=== PATIENT | female | born 1975 | race Caucasian/White ===

== ENCOUNTER → 2017-01-20 | Outpatient (CLI) | payer OTHER ==
[~2017-01-20] MED LIST: DOXY100C PO; MULT-506 PO; NAPR1TAB9 PO; SERT25TA PO
--- NOTE | 2017-01-21 07:39 | MAMMOGRAPHY REPORT ---
BILATERAL DIGITAL SCREENING MAMMOGRAM TOMOSYNTHESIS WITH CAD: 01/20/2017 CLINICAL HISTORY: Routine screening. Patient has no complaints. TECHNIQUE: Breast tomosynthesis in addition to standard 2D mammography was performed. Current study was also evaluated with a Computer Aided Detection (CAD) system. COMPARISON: Comparison is made to exam dated: 01/16/2016 mammogram - [facility]. BREAST COMPOSITION: The tissue of both breasts is heterogeneously dense, which may obscure small ma sses. FINDINGS: The parenchymal pattern is unchanged. No developing mass, architectural distortion or clu ster of suspicious microcalcifications is seen in either breast. IMPRESSION: ACR BI-RADS CATEGORY 2: BENIGN There is no mammographic evidence of malignancy. A 1 year screening mammogram is recommended. The p atient will receive written notification of the results. Approximately 10% of breast cancers are not detected with mammography. A negative mammographic repor t should not delay biopsy if a clinically suggestive mass is present. Frieda Marcelo M.D. ay/:01/20/2017 17:36:22 Busboy: Angelia BARRIOS([place])([place]), [facility] letter sent: Normal 1/2 BI-RADS Code: ACR BI-RADS Category 2: Benign
== END | disposition home or self-care (01) ==
LOC: C.MAMM 07:15
PROVIDERS: ATTEND Family Medicine
DX: Z12.31 Encounter for screening mammogram for malignant neoplasm of breast (principal)

== ENCOUNTER 2017-06-02 12:12 | Emergency (ER) | payer OTHER ==
[~2017-06-02] VITALS: Ht 160 cm; Wt 54.1 kg
[~2017-06-02 12:12] MED LIST changes: -DOXY100C PO
[2017-06-02 12:14] VITALS: TEMP 36.9; Ht 160 cm; Wt 54.1 kg
[2017-06-02] MEDS ORDERED: CEFTRIAXONE SOD INJ 2,000 MG in DEXTROSE 5% 50ML 50 ML IV STA (12:38)
[2017-06-02] MEDS ORDERED: IBUPROFEN 600 MG TAB PO STA (12:38)
[2017-06-02] MEDS ORDERED: SODIUM CHLORIDE 0.9% 500ML 500 ML IV STA (12:38)
[2017-06-02] MEDS ORDERED: DOXY100C PO (13:03)
--- NOTE | 2017-06-02 13:46 | EMERGENCY ROOM VISIT NOTE ---
History Report prepared by Lilo: Star Gutierrez Under the Supervision of: Dr. Jean Pierre Park M.D. First contact with patient: 12:25 Chief Complaint: ILLNESS Stated Complaint: HIGH FEVER, STIFFNESS IN NECK,BACK, SPLOTCHES History of Present Illness The patient is a 42 year old female who presents to the Emergency Room with complaints of intermittent fevers beginning 6 days ago. The patient states that her fevers began 6 days ago and have been present in the morning and evening, but not during the day. She reports that she does not know why they started, and the fevers have led to headaches and lack of sleep. The patient notes that she thought her headaches were from the lack of sleep. She states that three days ago her neck began to stiffen. The patient reports that she went to her PCP and had urine and blood work performed. She notes that the only result that she has received was a negative Lyme test. The patient states that she has developed hot flashes and chills, even when outside in a sweater. She reports that it is difficult to swallow, but it is not painful. The patient notes that this morning she developed a stuffy nose and two splotch-like rashes. She states that her ankles and wrist joints have been in pain as well. The patient reports that she has been taking Tylenol, but it is not helping. The patient denies dysuria, vomiting, coughing, urinary frequency, and tick bites. She reports that the only medication she takes is Zoloft for anxiety. Source of History: patient Onset: 6 days ago Position: other (global) Quality: other (fever) Timing: intermittent Associated Symptoms: + chills, + headache, + rash, No cough, No vomiting, No urinary symptoms Note: Associated symptoms: neck stiffness, lack of sleep, hot flashes, difficulty swallowing, stuffy nose, and ankle and wrist joint pain Denies dysuria and tick bites Review of Systems See HPI for pertinent positives & negatives. A total of 10 systems reviewed and were otherwise negative. Past Medical & Surgical Medical Problems: (1) Concussion (2) Headache (3) IBS (irritable bowel syndrome) (4) Imbalance (5) Vertigo Family History Diabetes mellitus SISTER FH: cancer AUNT Social History Smoking Status: Never Smoker Alcohol Use: occasionally Occupation Status: employed Current/Historical Medications Scheduled Doxycycline Hyclate (Vibramycin), 100 MG PO BID Multivitamin (Multivitamin), 1 TAB PO DAILY Sertraline (Zoloft), 25 MG PO DAILY Scheduled PRN Naproxen (Aleve), 440 MG PO DIRECTED PRN for Pain Allergies Coded Allergies: Camphor (Unverified Allergy, Intermediate, LEGS SWELLING, 06/02/17) Diphenhydramine (Unverified Allergy, Intermediate, LEGS SWELLING, 06/02/17) Calamine (Unverified Allergy, Unknown, rash, 06/02/17) Physical Exam Vital Signs Date Time Temp Pulse Resp B/P (MAP) Pulse Ox O2 Delivery O2 Flow Rate FiO2 06/02/17 14:09 67 18 82/54 98 06/02/17 13:32 84 16 90/57 100 Room Air 06/02/17 12:14 36.9 89 18 90/58 98 Room Air Physical Exam GENERAL: Patient is in no acute distress. HEENT: No acute trauma, normocephalic atraumatic, mucous membranes moist, no nasal congestion, no scleral icterus. NECK: No stridor, no adenopathy, no meningismus, trachea is midline. Flexes chin to chest with no pain or difficulty LUNGS: Clear to auscultation bilaterally, no wheeze, no rhonchi, breath sounds equal. HEART: Without murmurs gallops or rubs, regular rate and rhythm. ABDOMEN: Soft, nontender, bowel sounds positive, no hernias, no peritonitis. EXTREMITIES: No cyanosis or edema, full range of motion of all the joints without pain or difficulty, no signs for acute trauma. NEUROLOGIC: Oriented x 3, no acute motor or sensory deficits, no focal weakness. SKIN: Erythematous slightly raised lesions across the lower chest, no cellulitis , range in size from 2 cm to 5 cm, they do palomo. Medical Decision & Procedures Laboratory Results Lab results from 06/02/17: Urine Culture returned negative Chemistry Profile was essentially negative Lyme Disease testing was negative CBC: WBC 8.70 HGB 12.9 Platelet Count 194 Medications Administered Medications (Trade) Dose Ordered Sig/Char Route Start Time Stop Time Status Last Admin Dose Admin Sodium Chloride 500 ml @ 999 mls/hr Q31M STAT IV 06/02/17 12:38 06/02/17 13:08 DC 06/02/17 12:59 999 MLS/HR Ceftriaxone Sodium 2000 mg/ Dextrose 70 ml @ 100 mls/hr ONE STAT IV 06/02/17 12:38 06/02/17 13:19 DC 06/02/17 12:58 100 MLS/HR Ibuprofen (Motrin Tab) 600 mg NOW STAT PO 06/02/17 12:38 06/02/17 12:41 DC 06/02/17 12:58 600 MG ED Course 1230: The patient was evaluated in room A04B. A complete history and physical exam was performed. 1238: Ordered Ibuprofen 600 mg PO, Ceftriaxone Sodium 2000 mg/Dextrose 70 ml @ 100 mls/hr IV, Sodium Chloride 500 ml @ 999 mls/hr IV 1336: Reevaluated the patient. Discussed results and discharge instructions: she verbalized understanding and agreement. The patient is ready for discharge. Medical Decision Differential diagnosis includes: Lyme disease, meningitis, viral illness, UTI, bacteremia, sepsis, endocarditis Medication Reconciliation: I attest that I have personally reviewed the patient' s current medication list. Blood Pressure Screening: Patient was found to have normal blood pressure on screening and does not require follow-up. The patient presents with flulike symptoms. She had lab work a few days ago which I was able to review. The white count was normal, there was no anemia. Chemistry profile was unremarkable. Urine culture did not grow any organisms. Lyme testing was negative. On exam, the patient is not toxic. She has no meningismus. She is pleasant and smiling. Her blood pressure is borderline low but she is thin and has a low blood pressure all of the time. She states that her numbers today are typical for her. I did order for some blood cultures as these had not been done as an outpatient. I do believe her presentation is very consistent with Lyme disease despite the negative Lyme test as an outpatient. She now has a rash which makes Lyme disease even more likely. Patient was given a dose of IV saline and IV ceftriaxone. She is being discharged on doxycycline for a month. She will follow with her doctors office and return here if she is not improving or worsening. Impression Primary Impression: Lyme disease Additional Impressions: Fever Rash Scribe Attestation The scribe's documentation has been prepared under my direction and personally reviewed by me in its entirety. I confirm that the note above accurately reflects all work, treatment, procedures, and medical decision making performed by me. Departure Information Dispostion Home / Self-Care Prescriptions Doxycycline Hyclate (VIBRAMYCIN) 100 Mg Cap 100 MG PO BID for 28 Days, #56 CAP Prov: Jean Pierre Park M.D. 06/02/17 Referrals Juju Trammell M.D. Forms HOME CARE DOCUMENTATION FORM, IMPORTANT VISIT INFORMATION, WORK / SCHOOL INSTRUCTIONS Patient Instructions [facility] Additional Instructions doxycycline 2x per day for 4 weeks stay well hydrated rest off work for 3 days motrin and or tylenon for fever and aches return if worsening as we discussed consider lyme disease testing in a few weeks follow with jimmy [facility] for a recheck we will call with any positive blood culture results Problem Qualifiers
[2017-06-02 14:09] VITALS: BP 82/54; PULSE 67; O2SAT 98
== END 2017-06-02 14:11 | disposition home or self-care (01) ==
LOC: C.EDB 12:13 → C.EDA 14:11
DX: A69.20 Lyme disease, unspecified (principal); F41.9 Anxiety disorder, unspecified; Z79.899 Other long term (current) drug therapy; K58.9 Irritable bowel syndrome, unspecified; Z83.3 Family history of diabetes mellitus; Z80.9 Family history of malignant neoplasm, unspecified

== ENCOUNTER → 2018-01-28 | Outpatient (CLI) | payer OTHER ==
--- NOTE | 2018-01-28 15:17 | MAMMOGRAPHY REPORT ---
BILATERAL DIGITAL SCREENING MAMMOGRAM TOMOSYNTHESIS WITH CAD: 01/28/2018 CLINICAL HISTORY: Routine screening. TECHNIQUE: Breast tomosynthesis in addition to standard 2D mammography was performed. Current study was also evaluated with a Computer Aided Detection (CAD) system. COMPARISON: Comparison is made to exams dated: 01/20/2017 mammogram and 01/16/2016 mammogram - [facility]. BREAST COMPOSITION: The tissue of both breasts is heterogeneously dense, which may obscure small mas ses. FINDINGS: No suspicious masses, calcifications, or areas of architectural distortion are noted in ei ther breast. There has been no significant interval change compared to prior exams. Asymmetry in the left superior breast middle depth on the MLO view has the appearance abnormal fibroglandular tissue on the tomosynthesis images. IMPRESSION: ACR BI-RADS CATEGORY 2: BENIGN There is no mammographic evidence of malignancy. A 1 year screening mammogram is recommended. The pa tient will receive written notification of the results. Approximately 10% of breast cancers are not detected with mammography. A negative mammographic report should not delay biopsy if a clinically suggestive mass is present. Sandie Vanegas M.D. /:01/28/2018 07:43:04 Marine Welder: Belem BARRIOS([place])(M), [facility] letter sent: Normal 1/2 BI-RADS Code: ACR BI-RADS Category 2: Benign
== END | disposition home or self-care (01) ==
LOC: C.MAMM 07:18
PROVIDERS: ATTEND Family Medicine
DX: Z12.31 Encounter for screening mammogram for malignant neoplasm of breast (principal)